=== PATIENT | female | born 1975 | race American Indian/Alaskan Native ===

== ENCOUNTER 2022-03-13 19:14 | Emergency (ER) | payer BC ==
[2022-03-13] MEDS ORDERED: LOSARTAN 50 MG TAB PO ONE (20:59)
[2022-03-13] MEDS ORDERED: methylPREDNISolone Sod Succinate 125 MG/2 ML INJ IM ONE (21:02)
[2022-03-13] MEDS ORDERED: ALBUTEROL 2.5 MG/3 ML NEBU IH ONE (21:02)
[2022-03-13] MEDS ORDERED: LOSARTAN 50 MG TAB PO STA (21:02)
--- NOTE | 2022-03-13 21:19 | Emergency Department Report ---
<MAIKELEDMAR - Last Filed: 03/13/22 23:20> ED General Adult HPI - General Chief complaint: Upper Respiratory Infection Stated complaint: BRONCHITIS Time Seen by Provider: 03/13/22 21:01 Source: patient Mode of arrival: Ambulatory Limitations: No Limitations - History of Present Illness Initial comments: 46-year-old female former smoker with quit 6 months ago with past medical history of chronic recurrent bronchitis and hypertension presents emergency department complaining of flareup of cough congestion and wheezing with this weather/seasonal changing. She reports no hemoptysis symptoms hematochezia, no nausea vomiting, there is mucus production. -: Gradual Radiation: non-radiation Quality: dull Consistency: constant Improves with: none Worsens with: none Associated Symptoms: cough, shortness of breath. denies: chest pain, diaphoresis, loss of appetite, malaise, nausea/vomiting, rash, syncope, weakness Treatments Prior to Arrival: none - Related Data Previous Rx's Medication Instructions Recorded Last Taken Type Albuterol Mdi (or & Nicu Only) 1 puff IH Q4-6H PRN #1 inha 03/13/22 Unknown Rx [ProAir HFA Inhaler] Azithromycin [Zithromax] 500 mg PO QDAY #5 tablet 03/13/22 Unknown Rx Benzonatate [Tessalon Perles] 100 mg PO Q8HR #20 capsule 03/13/22 Unknown Rx predniSONE [Deltasone] 50 mg PO QDAY #5 tab 03/13/22 Unknown Rx Allergies Allergy/AdvReac Type Severity Reaction Status Date / Time No Known Allergies Allergy Unverified 03/13/22 20:44 ED Review of Systems Comment: All other systems reviewed and negative ED Past Medical Hx - Past Medical History Previous Medical History?: Yes Hx Hypertension: Yes Hx Diabetes: Yes Additional medical history: PERICARDITIS, CHRONIC BRONCHITIS - Surgical History Past Surgical History?: Yes Additional Surgical History: , TOTAL HYSTERECTOMY, T&A, UMBILICAL HERNIA - Social History Smoking Status: Never Smoker Substance Use Type: None - Medications Home Medications: Home Medications Medication Instructions Recorded Confirmed Last Taken Type Albuterol Mdi (or & Nicu Only) 1 puff IH Q4-6H PRN #1 inha 03/13/22 Unknown Rx [ProAir HFA Inhaler] Azithromycin [Zithromax] 500 mg PO QDAY #5 tablet 03/13/22 Unknown Rx Benzonatate [Tessalon Perles] 100 mg PO Q8HR #20 capsule 03/13/22 Unknown Rx predniSONE [Deltasone] 50 mg PO QDAY #5 tab 03/13/22 Unknown Rx ED Physical Exam - General Limitations: No Limitations General appearance: alert, in no apparent distress - Head Head exam: Present: atraumatic, normocephalic - Eye Eye exam: Present: normal appearance, PERRL, EOMI Pupils: Present: normal accommodation - ENT ENT exam: Present: mucous membranes moist - Neck Neck exam: Present: normal inspection - Respiratory Respiratory exam: Present: normal lung sounds bilaterally, wheezes, rhonchi. Absent: respiratory distress - Cardiovascular Cardiovascular Exam: Present: regular rate, normal rhythm. Absent: systolic murmur, diastolic murmur, rubs, gallop - GI/Abdominal GI/Abdominal exam: Present: soft, normal bowel sounds - Extremities Exam Extremities exam: Present: normal inspection, normal capillary refill - Back Exam Back exam: Present: normal inspection - Neurological Exam Neurological exam: Present: alert, oriented X3 - Psychiatric Psychiatric exam: Present: normal affect, normal mood - Skin Skin exam: Present: warm, dry, intact, normal color. Absent: rash ED Medical Decision Making - Radiology Data Radiology results: report reviewed [address] [address] XRay Report Signed Patient: MARSHA MORSE MR#: [id number] [birth year] : 1975 Acct:[id number] Age/Sex: 46 / F ADM Date: 03/13/22 Loc: ED Attending Dr: Ordering Physician: MARKO ROSE MD Date of Service: 03/13/22 Procedure(s): XR chest 1V ap Accession Number(s): [id number] cc: MARKO ROSE MD Fluoro Time In Minutes: CHEST 1 VIEW 03/13/2022 9:11 PM INDICATION / CLINICAL INFORMATION: COUGH. COMPARISON: None available. FINDINGS: SUPPORT DEVICES: None. HEART / MEDIASTINUM: No significant abnormality. LUNGS / PLEURA: Mild diffuse interstitial prominence. No pneumothorax. ADDITIONAL FINDINGS: No significant additional findings. IMPRESSION: 1. Diffuse interstitial prominence which may be related to pulmonary edema or possibly infection. Signer Name: Annamarie Black MD Signed: 03/13/2022 9:43 PM Workstation Name: [id number] Transcribed By: Dictated By: ANNAMARIE BLACK MD Electronically Authenticated By: ANNAMARIE BLACK MD Signed Date/Time: 03/13/222142 DD/ 41 TD/TT: - Medical Decision Making This patient presents with acute cough, most consistent with bronchitis. Differential diagnosis includes hyperactive airway disease, bronchitis, wheeze. Presentation not consistent with acute bacterial pneumonia, influenza, asthma, transient airway hyperresponsiveness. Presentation not consistent with chronic causes of cough (including GERD, asthma, postnasal discharge, medication side effect, CHF, lung cancer or mass). Plan: CXR, supportive care, reassess ED Disposition Clinical Impression: Cough, Bronchitis Disposition: 01 HOME / SELF CARE / HOMELESS Is pt being admited?: No Does the pt Need Aspirin: No Condition: Stable Instructions: Cool Mist Vaporizer, How to Use a Metered Dose Inhaler, Cough, Adult, How to Use a Dry Powder Inhaler, [id number], Chronic Bronchitis (ED) Additional Instructions: You were evaluated emergency department today for cough. Chest x-ray did not show any evidence of any pneumonia and your cough is most likely due to a viral illness which will improve on its own with rest and fluids. Due to the duration of your symptoms and the markings on x-ray you have been prescribed Zithromax please complete this regimen you can take [id number] medications such as various htzu-bcz-itjgier cough medications and also some decongestions to help diurese your symptoms. Please schedule an appointment to follow-up with your primary care physician within 2 days Return to emergency department if you expands worsening cough, fever 101 100.4 or greater, recurrent vomiting, chest pain, shortness of breath or other concerning problems Prescriptions: predniSONE [Deltasone] 50 mg PO QDAY #5 tab Albuterol Mdi (or & Nicu Only) [ProAir HFA Inhaler] 1 puff IH Q4-6H PRN #1 inha PRN Reason: Cough Benzonatate [Tessalon Perles] 100 mg PO Q8HR #20 capsule Azithromycin [Zithromax] 500 mg PO QDAY #5 tablet Referrals: RADHA ROSE MD [Other] - 3-5 Days <NICOL ELENA - Last Filed: 03/14/22 00:30> ED Review of Systems ROS: Stated complaint: BRONCHITIS Other details as noted in HPI ED Course Vital Signs 03/13/22 03/13/22 03/13/22 20:44 21:06 23:59 Temperature 98.3 F Pulse Rate 95 H 76 Respiratory 16 14 Rate Blood Pressure 204/101 204/101 Blood Pressure 175/94 [Left] O2 Sat by Pulse 100 100 Oximetry ED Medical Decision Making - Medical Decision Making This patient was seen independently by the midlevel provider. I was available for consult however I was not involved in the decision making or the disposition of this patient. Nicol Elena Critical care attestation.: If time is entered above; I have spent that time in minutes in the direct care of this critically ill patient, excluding procedure time. ED Disposition Is pt being admited?: No
--- NOTE | 2022-03-13 21:47 | XRay Report ---
CHEST 1 VIEW 03/13/2022 9:11 PM INDICATION / CLINICAL INFORMATION: COUGH. COMPARISON: None available. FINDINGS: SUPPORT DEVICES: None. HEART / MEDIASTINUM: No significant abnormality. LUNGS / PLEURA: Mild diffuse interstitial prominence. No pneumothorax. ADDITIONAL FINDINGS: No significant additional findings. IMPRESSION: 1. Diffuse interstitial prominence which may be related to pulmonary edema or possibly infection. Signer Name: Gene Black MD Signed: 03/13/2022 9:43 PM Workstation Name: [id number]
[2022-03-14] VITALS: BP 175/94
== END 2022-03-14 | disposition home or self-care (01) ==
LOC: ED 19:14
DX: J40 Bronchitis, not specified as acute or chronic (principal); E11.9 Type 2 diabetes mellitus without complications; I10 Essential (primary) hypertension; Z90.89 Acquired absence of other organs; Z98.890 Other specified postprocedural states; Z79.899 Other long term (current) drug therapy
CPT/HCPCS: 71045; 94640; 96372; 99283